=== PATIENT | female | born 1970 | race African-American/Black ===

== ENCOUNTER 2017-09-07 19:40 | Observation (INO) | payer BC, OTHER ==
[~2017-09-07] VITALS: Ht 160 cm; Wt 63.5 kg
[2017-09-07] MEDS ORDERED: ONDANSETRON 4 MG/2 ML (SDV) Z0FRAN ONE ×2 (19:53→20:01)
[2017-09-07] MEDS ORDERED: fentaNYL INJECTION 100 MCG/2 ML AMP ONE (19:53)
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
[2017-09-07] MEDS ORDERED: fentaNYL INJECTION 100 MCG/2 ML AMP IVP ONE ×2 (20:15→21:15)
[2017-09-07] MEDS ORDERED: ONDANSETRON 4 MG/2 ML (SDV) Z0FRAN IVP ONE (20:15)
[2017-09-07 20:21] LABS: HEMATOCRIT 29 % (35-52); HEMOGLOBIN 9.8 G/DL (11.5-16.0); MEAN CORPUSCULAR HEMOGLOBIN 22 PG (25-34); MEAN CORPUSCULAR HGB CONC 34 G/DL (32-36); MEAN CORPUSCULAR VOLUME 64 FL (80-99); PLATELET COUNT 264 10^3/uL (130-400); RED BLOOD COUNT 4.53 10^6/uL (4.35-5.85); RED CELL DISTRIBUTION WIDTH 18.7 % (10.0-14.5); WHITE BLOOD COUNT 7.2 10^3/uL (4.3-11.0)
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
[2017-09-07 20:39] LABS: ALANINE AMINOTRANSFERASE 23 U/L (0-55); ALBUMIN 4.2 GM/DL (3.2-4.5); ALKALINE PHOSPHATASE 115 U/L (40-136); BILIRUBIN,DIRECT 0.1 MG/DL (0.0-0.3); BILIRUBIN,INDIRECT 0.3 MG/DL; BILIRUBIN,TOTAL 0.4 MG/DL (0.1-1.0); BUN/CREATININE RATIO 11; CALCIUM 8.6 MG/DL (8.5-10.1); CARBON DIOXIDE 24 MMOL/L (21-32); CHLORIDE 107 MMOL/L (98-107); CREATININE SERUM 0.97 MG/DL (0.60-1.30); GFR ESTIMATED > 60; GLUCOSE 106 MG/DL (70-105); POTASSIUM 3.7 MMOL/L (3.6-5.0); SODIUM 140 MMOL/L (135-145); TOTAL PROTEIN 7.1 GM/DL (6.4-8.2)
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
[2017-09-07] MEDS ORDERED: PROMETHAZINE INJ 25 MG/ML (PHENERGAN) AMP IVP ONE (21:30)
[2017-09-07] MEDS ORDERED: LACTATED RINGERS 1,000 ML IV ONE ×2 (22:24→22:29)
[2017-09-07 22:33] LABS: BILIRUBIN,URINE NEGATIVE (NEGATIVE); CLARITY,URINE CLEAR; COLOR,URINE YELLOW; GLUCOSE, URINE (UA) NEGATIVE (NEGATIVE); KETONES,URINE NEGATIVE (NEGATIVE); LEUKOCYTE ESTERASE ,URINE 1+ (NEGATIVE); NITRITE,URINE NEGATIVE (NEGATIVE); PH,URINE 7 (5-9); PROTEIN,URINE 1+ (NEGATIVE); UROBILINOGEN,URINE 1 MG/DL (NORMAL)
[2017-09-07 22:42] LABS: BACTERIA,URINE NEGATIVE /HPF; RBC,URINE TNTC /HPF; WBC,URINE 0-2 /HPF
[2017-09-07 22:45] LABS: AMPHETAMINE SCREEN, URINE NEGATIVE (NEGATIVE); BARBITURATE SCREEN URINE NEGATIVE (NEGATIVE); BENZODIAZEPINES SCREEN URINE NEGATIVE (NEGATIVE); CANNABINOID SCREEN, URINE NEGATIVE (NEGATIVE); COCAINE SCREEN URINE NEGATIVE (NEGATIVE); METHADONE STAT NEGATIVE (NEGATIVE); METHAMPHETAMINE SCREEN URINE S NEGATIVE (NEGATIVE); OPIATE SCREEN URINE NEGATIVE (NEGATIVE); OXYCODONE STAT NEGATIVE (NEGATIVE); PROPOXYPHENE STAT NEGATIVE (NEGATIVE); TRICYCLIC ANTIDEPRESSANTS SCRE NEGATIVE (NEGATIVE)
[2017-09-07] MEDS ORDERED: PROMETHAZINE INJ 25 MG/ML (PHENERGAN) AMP IV PRN (23:45)
[2017-09-07] MEDS ORDERED: HYDROcodone/APAP 10 MG/325 MG (LORTAB) TAB PO PRN (23:45)
[2017-09-07] MEDS ORDERED: ONDANSETRON 4 MG/2 ML (SDV) Z0FRAN IV PRN (23:45)
[2017-09-07] MEDS ORDERED: fentaNYL INJECTION 100 MCG/2 ML AMP IV PRN (23:45)
[2017-09-07] MEDS: 1/2 NS W/KCL 20 MEQ/L 1,000 ML IV SCH (23:50)
[2017-09-08] VITALS: BP 105/66
[2017-09-08 04:00] VITALS: BP 106/68
[2017-09-08 05:12] LABS: BASOPHILS % (AUTO) 0 % (0-10); EOSINOPHILS % (AUTO) 0 % (0-10); HEMATOCRIT 29 % (35-52); HEMOGLOBIN 9.5 G/DL (11.5-16.0); LYMPHOCYTES # (AUTO) 1.4 X 10^3 (1.0-4.0); LYMPHOCYTES % (AUTO) 13 % (12-44); MEAN CORPUSCULAR HEMOGLOBIN 21 PG (25-34); MEAN CORPUSCULAR HGB CONC 33 G/DL (32-36); MEAN CORPUSCULAR VOLUME 65 FL (80-99); MONOCYTES # (AUTO) 0.7 X 10^3 (0.0-1.0); MONOCYTES % (AUTO) 7 % (0-12); NEUTROPHILS % (AUTO) 80 % (42-75); PLATELET COUNT 247 10^3/uL (130-400); RED BLOOD COUNT 4.45 10^6/uL (4.35-5.85); RED CELL DISTRIBUTION WIDTH 18.8 % (10.0-14.5); WHITE BLOOD COUNT 10.1 10^3/uL (4.3-11.0)
[2017-09-08 05:33] LABS: BUN/CREATININE RATIO 10; CALCIUM 8.6 MG/DL (8.5-10.1); CARBON DIOXIDE 22 MMOL/L (21-32); CHLORIDE 108 MMOL/L (98-107); CREATININE SERUM 0.97 MG/DL (0.60-1.30); GFR ESTIMATED > 60; GLUCOSE 115 MG/DL (70-105); MAGNESIUM 2.2 MG/DL (1.8-2.4); POTASSIUM 4.5 MMOL/L (3.6-5.0); SODIUM 138 MMOL/L (135-145)
[2017-09-08] MEDS: 1/2 NS W/KCL 20 MEQ/L 1,000 ML IV SCH (06:25)
[2017-09-08 08:00] VITALS: BP 121/78
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
[2017-09-08] MEDS ORDERED: CYCL10TA9 PO (09:50)
[2017-09-08] MEDS ORDERED: NAPR-915 PO (09:50)
[2017-09-08] MEDS ORDERED: ONDA4TAB8 PO (09:50)
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
== END 2017-09-08 11:20 | disposition home or self-care (01) ==
LOC: ER 19:43 → UNDOADMOB 22:32 → 4TH 22:32 → UNDODISOB 09-08 12:35
PROVIDERS: ADMIT Family Medicine; ATTEND Family Medicine
DX: S06.0X9A Concussion with loss of consciousness of unspecified duration, initial encounter (principal); S27.322A Contusion of lung, bilateral, initial encounter; M54.2 Cervicalgia; R11.2 Nausea with vomiting, unspecified; R41.2 Retrograde amnesia; D64.9 Anemia, unspecified; J32.9 Chronic sinusitis, unspecified; K42.0 Umbilical hernia with obstruction, without gangrene; V48.6XXA Car passenger injured in noncollision transport accident in traffic accident, initial encounter
CPT/HCPCS: 36415; 70450; 70486; 71045; 72125; 72128; 72131; 73090; 73110; 73562; 73590; 73630; 74176; 80048; 80076; 80306; 80320; 81000; 83735; 84484; 84703; 85025; 85027; 86850; 86900; 86901; 93005; 93041; G0378